=== PATIENT | female | born 1965 | race Hispanic/Latino ===

== ENCOUNTER 2016-04-21 08:21 | Day surgery (SDC) | payer MEDICAID ==
[2016-04-18 08:50] VITALS: BMI 36.3
[2016-04-21] MEDS ORDERED: Propofol 10 mg/ml Inj (20 ML) ONE ×3 (09:26→10:18)
[2016-04-21] MEDS ORDERED: Lidocaine 1% Inj (20ml) ONE (09:26)
[2016-04-21] MEDS ORDERED: Sodium Chloride 0.9% 1,000 ML IV SCH (09:30)
[2016-04-21] MEDS ORDERED: ePHEDrine 50 mg/ml Inj ONE (09:57)
[2016-04-21 10:49] VITALS: O2SAT 100
[2016-04-21 11:40] VITALS: BP 129/77; PULSE 65; RESP 16; TEMP 97.6
--- NOTE | 2016-04-22 09:26 | CARD ---
APPROVED REPORT EKG Measurement Heart [id number] <Conclusion> Normal sinus rhythm Normal ECG No change
== END 2016-04-21 12:11 | disposition home or self-care (01) ==
LOC: ENDO 08:21
PROVIDERS: ATTEND Internal Medicine Gastroenterology
DX: Z12.11 Encounter for screening for malignant neoplasm of colon (principal); D36.15 Benign neoplasm of peripheral nerves and autonomic nervous system of abdomen; D12.3 Benign neoplasm of transverse colon; K29.50 Unspecified chronic gastritis without bleeding; K21.0 Gastro-esophageal reflux disease with esophagitis; K64.1 Second degree hemorrhoids; K44.9 Diaphragmatic hernia without obstruction or gangrene; Z98.84 Bariatric surgery status
CPT/HCPCS: 43239; 45385; 84703; 88305; 88312; 88342; 93005; J2704; J7040 ×2